=== PATIENT | female | born 1980 | race African-American/Black ===

== ENCOUNTER 2018-01-01 05:22 | Inpatient (IN) | payer OTHER ==
[2017-12-23 13:19] LABS: HEMATOCRIT 32.8 % (36.0-47.0); HEMOGLOBIN 10.4 g/dL (12.0-15.5); MEAN CORPUSCULAR HEMOGLOBIN 23.8 pg (27.0-33.4); MEAN CORPUSCULAR HGB CONC 31.6 g/dL (32.0-36.0); MEAN CORPUSCULAR VOLUME 75 fl (80-97); PLATELET COUNT 564 10^3/uL (150-450); RED BLOOD COUNT 4.37 10^6/uL (3.72-5.28); RED CELL DISTRIBUTION WIDTH 17.5 % (11.5-14.0); WHITE BLOOD COUNT 8.9 10^3/uL (4.0-10.5)
[2017-12-23 13:23] LABS: APPEARANCE,URINE SLIGHTLY-CLOUDY; BILIRUBIN,URINE NEGATIVE (NEGATIVE); COLOR,URINE YELLOW; GLUCOSE, URINE NEGATIVE (NEGATIVE); KETONES,URINE NEGATIVE (NEGATIVE); LEUKOCYTE ESTERASE,URINE NEGATIVE (NEGATIVE); NITRITE,URINE NEGATIVE (NEGATIVE); PROTEIN,URINE NEGATIVE (NEGATIVE); URINE SPECIFIC GRAVITY 1.021; UROBILINOGEN,URINE NEGATIVE mg/dL (<2.0)
[2017-12-23 13:39] LABS: ALANINE AMINOTRANSFERASE 25 U/L (9-52); ALBUMIN 4.3 g/dL (3.5-5.0); ALKALINE PHOSPHATASE 63 U/L (38-126); ANION GAP 8 (5-19); ASPARTATE AMINO TRANSFERASE 24 U/L (14-36); BILIRUBIN,DIRECT 0.3 mg/dL (0.0-0.4); BILIRUBIN,TOTAL 0.3 mg/dL (0.2-1.3); BLOOD UREA NITROGEN 13 mg/dL (7-20); CALCIUM 9.9 mg/dL (8.4-10.2); CARBON DIOXIDE 26 mmol/L (22-30); CHLORIDE 107 mmol/L (98-107); GLUCOSE 62 mg/dL (75-110); POTASSIUM 4.7 mmol/L (3.6-5.0); SODIUM 140.9 mmol/L (137-145)
--- NOTE | 2017-12-23 16:03 | EKG REPORT ---
SEVERITY:- NORMAL ECG - SINUS RHYTHM : Confirmed by: Compa Tellez 23-Dec-2017 16:02:37
[~2018-01-01 05:22] MED LIST: CEFAZOLIN 1 GM/D5W RTU 1 GM/50 ML RTUPB IV PRN; LACTATED RINGERS 1000 ML IV PRN; LIDOCAINE 0.5% INJ-PF (5 MG/ML) 50 ML SDV SUBCUT PRN
[2018-01-01] MEDS ORDERED: BUPIVACAINE HCL 0.25 % INJ/PF (2.5 MG/1 ML) 30 ML VIAL ONE (06:54)
[2018-01-01] MEDS ORDERED: FENTANYL CITRATE INJ/PF 250 MCG/5 ML AMPULE ONE ×2 (07:05→08:52)
[2018-01-01] MEDS ORDERED: DEXMEDETOMIDINE INJ 80 MCG/20 ML VIAL IV ONE (07:06)
[2018-01-01] MEDS ORDERED: MIDAZOLAM 2 MG/2 ML INJ ONE (07:06)
[2018-01-01] MEDS ORDERED: ACETAMINOPHEN 100 ML IV ONE (07:06)
[2018-01-01] MEDS ORDERED: PROPOFOL INJ 200 MG/20 ML VIAL IV ONE (07:06)
[2018-01-01] MEDS ORDERED: MEPERIDINE HCL/PF INJ 25 MG/1 ML DISP.SYRIN IV PRN (08:06)
[2018-01-01] MEDS ORDERED: ONDANSETRON HCL INJ/PF 4 MG/2 ML SDV IV PRN (08:06)
[2018-01-01] MEDS ORDERED: OXYCODONE-ACETAMINOPHEN 5-325 MG TABLET PO PRN ×3 (08:06→11:21)
[2018-01-01] MEDS ORDERED: PROMETHAZINE HCL INJ 25 MG/1 ML VIAL IV PRN ×2 (08:06)
[2018-01-01] MEDS ORDERED: FENTANYL CITRATE INJ/PF 100 MCG/2 ML AMPUL IV PRN ×2 (08:06)
[2018-01-01] MEDS ORDERED: DIPHENHYDRAMINE HCL 50 MG/ML VIAL IV PRN (08:06)
[2018-01-01] MEDS ORDERED: EPHEDRINE SULFATE INJ 50 MG/1 ML AMPULE ONE (08:42)
[2018-01-01] MEDS ORDERED: FENTANYL CITRATE INJ/PF 100 MCG/2 ML AMPUL ONE (10:06)
[2018-01-01] MEDS: FENTANYL CITRATE INJ/PF 100 MCG/2 ML AMPUL IV PRN ×2 (10:15→10:20)
[2018-01-01] MEDS ORDERED: HYDROMORPHONE HCL INJ/PF 2 MG/ML AMPULE IV PRN (11:22)
--- NOTE | 2018-01-01 11:29 | OPERATIVE REPORT E ---
Operative Report NAME: KD MELTON : 1980 AGE: 37Y DATE OF SURGERY: 01/01/2018 ROOM: PREOPERATIVE DIAGNOSIS: PELVIC MASS. POSTOPERATIVE DIAGNOSIS: FIBROIDS. OPERATION: DIAGNOSTIC LAPAROSCOPY FOLLOWED BY TOTAL ABDOMINAL HYSTERECTOMY. SURGEON: Seamus GARCES M.D. ESTIMATED BLOOD LOSS: Approximately 300 mL. ANESTHESIA: General. TISSUE REMOVED OR ALTERED: Uterus and bilateral salpinges. PROCEDURE: The patient was placed in a dorsal lithotomy position, prepped and draped in usual sterile fashion. The patient was scheduled for robotic procedure and the speculum was placed and the cervix visualized and grasped with a single-toothed tenaculum and sounded to a depth of 12 cm. A Humi manipulator was placed and the speculum was removed. Attention was turned to the abdomen where a supraumbilical incision was made, trocar was introduced for insufflation of the abdomen. The camera was introduced and there was a fibroid approximately 20 x 15 cm and anterior that I was unable to see around, and the robotic approach was then abandoned. The laparoscope was removed and the abdomen deflated. The incision was closed with 0 Vicryl in the fascia and the skin with subcu interrupted 3-0 Vicryl. A Pfannenstiel incision was made, the incision extended through subcutaneous tissue and fascia with sharp dissection. Fascia was sharply divided. Rectus muscle was sharply divided. Parietal peritoneum was entered with sharp dissection. The bowel was packed with moistened packs and O'Ricky-O'Veronica retractors were placed. The left tube was then removed using cautery to the point where it was attached to the uterus. A clamp was placed on the uterus at the utero-ovarian ligament, and the Cherelle's free space was then entered. The tissue on the left was then divided until the bladder flap was created. On the right, the round ligament was identified, sutured and divided. Cherelle's free space was entered, the tube was removed with cautery. Cherlele's free space was entered and the pedicle was then sutured with 2-0 Vicryl, serial clamps on each side of the uterus, each pedicle being sutured with 2-0 Vicryl. This continued to the level of the cervix which was crossclamped and the uterus was removed. The cuff was closed with interrupted figure-of-8 sutures with 2-0 Vicryl. Hemostasis was noted. The retractor was removed and all packs were removed. The parietal peritoneum was then approximated using 2-0 Vicryl, the fascia closed with 0 Vicryl in running fashion, and the underlying subcutaneous tissue was approximated using 3-0 Vicryl, and the incision closed using absorbable jackson. Her urine remained clear throughout the procedure and she was taken to the recovery room in good condition. DICTATING PHYSICIAN: Seamus GARCES M.D. [id number] PHY#: [id number] ID: [id number] JOB#: [id number] ACCT: [id number] cc:Seamus GARCES M.D. >
[2018-01-01] MEDS ORDERED: HYDROMORPHONE HCL INJ/PF 2 MG/ML AMPULE ONE (11:38)
[2018-01-01] MEDS: DEXTROSE 5%-LACTATED RINGERS 1,000 ML IV PRN ×2 (11:43→22:21)
[2018-01-01] MEDS ORDERED: METOCLOPRAMIDE HCL INJ/PF 10 MG/2 ML SDV ONE (13:58)
[2018-01-01] MEDS ORDERED: LIDOCAINE 2% INJ-PF (20 MG/ML) 2 ML AMPUL ONE (13:58)
[2018-01-01] MEDS ORDERED: ONDANSETRON HCL INJ/PF 4 MG/2 ML SDV ONE (13:58)
[2018-01-01] MEDS ORDERED: NEOSTIGMINE METHYLSULFATE 10 MG/10 ML VIAL ONE (13:58)
[2018-01-01] MEDS ORDERED: ROCURONIUM BROMIDE INJ 50 MG/5 ML VIAL IV ONE (13:58)
[2018-01-01] MEDS ORDERED: DEXAMETHASONE SOD PHOSPHATE INJ 4 MG/1 ML VIAL ONE (13:58)
[2018-01-01] MEDS ORDERED: GLYCOPYRROLATE INJ 0.4 MG/2 ML VIAL ONE (13:58)
[2018-01-01] MEDS ORDERED: KETOROLAC TROMETHAMINE 60 MG/2 ML SDV ONE (13:58)
[2018-01-01] MEDS: IBUPROFEN 800 MG TABLET PO SCH ×2 (14:39→22:16)
[2018-01-01] MEDS ORDERED: SIMETHICONE 80 MG TAB.CHEW PO PRN (23:06)
[2018-01-02] MEDS: IBUPROFEN 800 MG TABLET PO SCH (05:39)
--- NOTE | 2018-01-02 08:01 | PDOC PROGRESS REPORT ---
Subjective Progress Note for:: 01/02/18 Subjective:: pt feels great denies any problems Reason For Visit: N92.0 EXCESSIVE AND FREQUENT MENSTRUATION WITH REG Physical Exam - Physical Exam Vital Signs: Temp Pulse Resp BP Pulse Ox 99.0 F 74 18 104/63 99 01/02/18 04:40 01/02/18 04:40 01/02/18 04:40 01/02/18 04:40 01/02/18 04:40 Intake & Output 01/01/18 01/02/18 01/03/18 06:59 06:59 06:59 Intake Total 0 4040 Output Total 1475 Balance 0 2565 Weight 68.49 kg General appearance: PRESENT: no acute distress GI/Abdominal exam: PRESENT: soft Psychiatric exam: PRESENT: normal mood Result Laboratory Results: 12/23/17 12:03 12/23/17 12:03 Assessment & Plan - Diagnosis (1) hypermenorrha Is this a current diagnosis for this admission?: Yes (2) Fibroid (bleeding) (uterine) Qualifiers: Uterine leiomyoma location: intramural, submucous, and subserous Qualified Code(s): D25.1 - Intramural leiomyoma of uterus; D25.0 - Submucous leiomyoma of uterus; D25.0 - Submucous leiomyoma of uterus; D25.2 - Subserosal leiomyoma of uterus; D25.2 - Subserosal leiomyoma of uterus Is this a current diagnosis for this admission?: Yes - Plan Summary Plan Summary: discharge
--- NOTE | 2018-01-02 08:05 | PDOC DISCHARGE SUMMARY ---
General - Admit/Disc Date/PCP Discharge Date: 01/02/18 - Discharge Diagnosis (1) hypermenorrha Is this a current diagnosis for this admission?: Yes (2) Fibroid (bleeding) (uterine) Is this a current diagnosis for this admission?: Yes - Additional Information Home Medications: No Home Medications 12/23/17 History of Present Illness Patient complains of: heavy vaginal bleeding and known to have 20 week size fibroids History of Present Illness: KD MELTON is a 37 year old female Hospital Course Hospital Course: post did well ambulating without difficulty and tolerating a regular diet no complaints Physical Exam - Physical Exam Vital Signs: Temp Pulse Resp BP Pulse Ox 99.0 F 74 18 104/63 99 01/02/18 04:40 01/02/18 04:40 01/02/18 04:40 01/02/18 04:40 01/02/18 04:40 Intake & Output 01/01/18 01/02/18 01/03/18 06:59 06:59 06:59 Intake Total 0 4040 Output Total 1475 Balance 0 2565 Weight 68.49 kg General appearance: PRESENT: no acute distress Respiratory exam: PRESENT: clear to auscultation tanisha Cardiovascular exam: PRESENT: RRR GI/Abdominal exam: PRESENT: soft Psychiatric exam: PRESENT: normal mood Result Laboratory Results: 12/23/17 12:03 12/23/17 12:03 Plan Discharge Plan: discharge f/u 1 week
[2018-01-02 08:31] VITALS: BP 134/80
== END 2018-01-02 09:35 | disposition home or self-care (01) | DRG 743 ==
LOC: OROUT 05:22 → 2S 05:30 → OROUT 05:30 → 2S 11:24
PROVIDERS: ADMIT Obstetrics & Gynecology Gynecology; ATTEND Obstetrics & Gynecology Gynecology
PROC: 0UJD4ZZ Inspection of Uterus and Cervix, Percutaneous Endoscopic Approach (ICD-10-PCS; 2018-01-01)
PROC: 0UT70ZZ Resection of Bilateral Fallopian Tubes, Open Approach (ICD-10-PCS; 2018-01-01)
PROC: 8E0W0CZ Robotic Assisted Procedure of Trunk Region, Open Approach (ICD-10-PCS; 2018-01-01)
PROC: 0UT90ZZ Resection of Uterus, Open Approach (ICD-10-PCS; principal; 2018-01-01 07:15)
DX: N92.0 Excessive and frequent menstruation with regular cycle (principal); D25.0 Submucous leiomyoma of uterus; D25.2 Subserosal leiomyoma of uterus; D25.1 Intramural leiomyoma of uterus; F17.210 Nicotine dependence, cigarettes, uncomplicated
CPT/HCPCS: 36415; 80053; 81001; 81025; 840; 85027; 86850; 86900; 86901; 88307; 93005; 93010; J0131; J0690; J1100; J1170; J1885; J2250; J2405; J2704; J2765; J3010; J3490